=== PATIENT | male | born 1940 | race Two or more races ===

== ENCOUNTER 2024-10-12 21:50 | Emergency (ER) | payer OTHER ==
[~2024-10-12] VITALS: Ht 165.1 cm; Wt 69.9 kg
[2024-10-12] MEDS ORDERED: GLIMEPIRIDE4 M1 PO (22:17)
[2024-10-12 23:53] LABS: BASO % 0.7 % (0.1-1.2); EOS # 0.48 (0.04-0.54); EOS % 4.5 % (0.7-7.0); LYMPH # 3.00 (1.18-3.74); LYMPH % 28.0 % (19.3-53.1); MEAN PLATELET VOLUME 9.30 fl (9.4-12.4); MONO # 0.67 (0.24-0.82); MONO % 6.2 % (4.7-12.5); NEUT # 6.48 (1.56-6.13); NEUT % 60.3 % (34.0-71.1); RED CELL DISTRIBUTION WIDTH 13.1 % (11.6-14.4)
[2024-10-13 00:07] LABS: COVID-19 AG NEGATIVE (NEGATIVE)
== END 2024-10-13 01:38 | disposition home or self-care (01) ==
LOC: ER 21:50
PROVIDERS: Preventive Medicine Public Health & General Preventive Medicine
DX: J06.9 Acute upper respiratory infection, unspecified (principal); Z20.822 Contact with and (suspected) exposure to COVID-19